=== PATIENT | female | born 1975 | race Caucasian/White ===

== ENCOUNTER 2023-03-29 08:15 | Outpatient (CLI) | payer OTHER, SELFPAY ==
--- NOTE | ~2023-03-29 | MM_ITS ---
EXAMINATION: MM screening meek BI w christopher HISTORY: Screening mammogram TECHNIQUE: Craniocaudal and mediolateral oblique 3-D tomosynthesis images were obtained and synthetic 2-D images were generated. CAD analysis was submitted and interpreted. COMPARISON: None, baseline BREAST PARENCHYMAL COMPOSITION: There are scattered areas of fibroglandular density. FINDINGS: RIGHT BREAST: There is asymmetry in the anterior and middle third of the outer breast on the cranioca udal view. LEFT BREAST: No suspicious mass, calcification, or architectural distortion are identified to suggest malignancy. IMPRESSION: 1. Right breast asymmetry. 2. Additional mammographic views and possible breast ultrasound are recommended to evaluate the right breast asymmetry and establish a baseline given that this is the first mammographic examination. BI-RADS Category 0: Incomplete: Needs additional imaging evaluation. Reviewed, dictated and finalized at location A. IMPRESSION: 1. Right breast asymmetry. 2. Additional mammographic views and possible breast ultrasound are recommended to evaluate the right breast asymmetry and establish a baseline given that thi s is the first mammographic examination. BI-RADS Category 0: Incomplete: Needs additional imaging evaluation.
== END 2023-03-29 08:16 | disposition home or self-care (01) ==
PROVIDERS: PCP Internal Medicine; Visit Provider Obstetrics & Gynecology
DX: Z12.31 Encounter for screening mammogram for malignant neoplasm of breast (principal); R92.8 Other abnormal and inconclusive findings on diagnostic imaging of breast
CPT/HCPCS: 77063; 77067

== ENCOUNTER 2023-05-05 11:43 | Outpatient (CLI) | payer OTHER, SELFPAY ==
--- NOTE | ~2023-05-05 | MMUS_ITS ---
EXAMINATION: MM diagnostic meek RT w christopher, US breast RT limited HISTORY: Asymmetry reported in the outer right breast on 03/29/2023 screening mammogram TECHNIQUE: Additional 3-D tomosynthesis images of the right breast were performed and synthetic 2-D i mages were generated. CAD analysis was submitted and interpreted. High resolution upper outer and low er-outer quadrant right breast ultrasound was performed. COMPARISON: 03/29/2020 3L screening mammogram FINDINGS: MAMMOGRAPHIC FINDINGS: No suspicious mass or architectural distortion, malignant calcification, skin thickening or retractio n is detected. ULTRASOUND: No suspicious mass or shadowing, cyst or other significant sonographic abnormality is detected in the upper outer or lower outer quadrants. IMPRESSION: 1. No mammographic evidence of malignancy 2. Routine annual mammographic screening is recommended BI-RADS Category 1: Negative Reviewed, dictated and finalized at location A. IMPRESSION: 1. No mammographic evidence of malignancy 2. Routine annual mammographic screening is recommended BI-RADS Category 1: Negative
== END 2023-05-05 11:44 | disposition home or self-care (01) ==
LOC: ANHIMG 11:46
PROVIDERS: PCP Physician Assistant Medical; Visit Provider Obstetrics & Gynecology
DX: R92.8 Other abnormal and inconclusive findings on diagnostic imaging of breast (principal)
CPT/HCPCS: 76642; 77061; 77065; G0279

== ENCOUNTER 2024-06-13 21:44 | Emergency (ER) | payer OTHER, SELFPAY ==
--- NOTE | ~2024-06-13 | CT_ITS ---
CT of the Abdomen and Pelvis: Indication: Right flank pain Technique: 2.5 mm axial scans were obtained through the abdomen and pelvis following intravenous adm inistration of 100 cc of Omnipaque 350. Dose reduction technique was used on this scan by utilizing a utomated exposure control and iterative reconstruction technique. The dose-length product (DLP) was 1 063.36 mGy-cm. Findings: Scans through the lung bases are unremarkable. The liver, spleen, gallbladder, adrenals and kidneys are within normal limits. There is mild inflamma tory change about the pancreatic head, compatible with mild acute pancreatitis. No pseudocyst or defi nite pancreatic necrosis seen. No evidence of aortic aneurysm. No lymphadenopathy. No bowel obstruction or bowel wall thickening. There is no evidence to suggest acute appendicitis. Images through the pelvis were performed. Urinary bladder unremarkable. Probable small uterine fibroi ds present. Small left ovarian cysts are present. No ascites. Impression: Mild acute pancreatitis. Small uterine fibroids and small left ovarian cyst. No evidence for urolithiasis. Reviewed, dictated and finalized at location . Impression: Mild acute pancreatitis. Small uterine fibroids and small left ovarian cyst. No evidence for urolithiasis.
[2024-06-13 21:51] VITALS: BP 170/84; PULSE 100; RESP 14; TEMP 36.6; O2SAT 100
[2024-06-14 00:42] VITALS: O2SAT 99
--- NOTE | 2024-06-14 01:07 | ED.GENADULT ---
HPI - General Adult General Chief complaint: Unspecified <Zain Medeiros PA-C - Last Filed: 06/14/24 03:36> Stated complaint: flank pain <Zain Medeiros PA-C - Last Filed: 06/14/24 03:36> Time Seen by Provider: 06/14/24 01:03 <Zain Medeiros PA-C - Last Filed: 06/14/24 03:36> Source: patient <Zain Medeiros PA-C - Last Filed: 06/14/24 03:36> Mode of arrival: ambulatory <Zain Medeiros PA-C - Last Filed: 06/14/24 03:36> Limitations: no limitations <Zain Medeiros PA-C - Last Filed: 06/14/24 03:36> History of Present Illness HPI narrative: this is a 48-year-old female who presents to the ED for chief complaint of right flank and right-sided abdominal pain. Patient states this problem has been coming and going over the past couple of days. Over the past 24 hours pain is certainly increased in severity and is not complaining of nausea. Denies vomiting, diarrhea, fevers, chills. Denies urinary symptoms, chest pain, shortness of breath, cough. Denies any recent injury. <Zain Medeiros PA-C - Last Filed: 06/14/24 03:36> Related Data Allergies/adverse reactions: Allergies Allergy/AdvReac Type Severity Reaction Status Date / Time No Known Allergies Allergy Unverified 11/26/22 13:33 <Zain Medeiros PA-C - Last Filed: 06/14/24 03:36> Review of Systems Review of Systems: All systems as dictated in HPI <Zain Medeiros PA-C - Last Filed: 06/14/24 03:36> [facility] Past Medical History Medical History: Medical History (Updated 06/14/24 @ 03:36 by Zain Medeiros PA-C) Family history of hemochromatosis HTN (hypertension) Impaired fasting blood sugar <Zain Medeiros PA-C - Last Filed: 06/14/24 03:36> Social History Social History: Social History (Updated 11/26/22 @ 14:28 by Hafsa Paul Smoking status: Never smoker Alcohol intake: current Substance use: never Substance use type: does not use Lack of Transportation: No Lack of Food: Never True Current Housing: I Have Housing Concerned About Future Housing: No Difficulty Paying Gas/Electric Bills: No Difficulty Paying for Meds: No Currently Unemployed: No Education: Associate Degree Difficulty w/ Childcare or Family Care: No Living arrangements: with family Occupation/Education: occupation Gender identity (if verbalized by the patient): Female Sexual Orientation (if Verbalized by the Patient): Straight or Heterosexual <Zain Medeiros PA-C - Last Filed: 06/14/24 03:36> Exam Narrative: GENERAL: Well-appearing, well-nourished, and in no acute distress. HEAD: Normocephalic, atraumatic. EYES: PERRLA and EOMI. ENT: Nares clear, no rhinorrhea or epistaxis. Mucous membranes moist. Oropharynx without tonsillar hypertrophy exudate or other lesions. NECK: Supple. No adenopathy or masses. CHEST: No respiratory distress. Clear to auscultation. No wheezes rales or rhonchi HEART: Regular rate and rhythm. No murmur heard. Normal peripheral pulses. ABDOMEN: Flank tenderness present. Soft, otherwise nontender, nondistended, normal active bowel sounds. MSK: Normal range of motion. No edema. SKIN: Warm, dry, no rash. NEURO: Alert and oriented x4. No focal deficits. PSYCH: Normal mood and affect. <Zain Medeiros PA-C - Last Filed: 06/14/24 03:36> Course SYSTEMS ENGINEERING MANAGER/PA Physician Supervision For this patient encounter, I reviewed the SYSTEMS ENGINEERING MANAGER or PA documentation, treatment plan, and medical decision making and I had [id number] time with this patient. I performed all aspects of the MDM as documented. <Wesley Carlson DO - Last Filed: 06/14/24 06:08> Vital Signs Vital signs: Vital Signs Temperature 97.9 F 06/13/24 21:51 Pulse Rate 100 06/13/24 21:51 Respiratory Rate 14 06/13/24 21:51 Blood Pressure 170/84 H 06/13/24 21:51 Pulse Oximetry 100 06/13/24 21:51 Oxygen Delivery Room Air 06/13/24 21:51 Temperature 97.9 F 06/13/24 21:51 Pulse R
[2024-06-14 01:36] LABS: Basophils Absolute Auto 0.1 K/mm3 (0.0-0.1); Basophils Percent Auto 0.4 % (0.2-1.2); Eosinophils Percent Auto 0.1 % (0-4.4); Hematocrit 38.5 % (37.0-47.0); Hemoglobin 13.4 g/dL (12.0-15.0); Immature Granulocyte Absolute 0.07 K/mm3 (0.00-0.031); Immature Granulocyte Percent A 0.4 % (0-0.5); Lymphocytes Absolute Auto 0.85 K/mm3 (0.9-3.2); Mean Corpuscular HGB Conc 34.8 g/dl (32-36); Mean Corpuscular Hemoglobin 30.2 pg (26-34); Mean Corpuscular Volume 86.9 fl (80-100); Mean Platelet Volume 10.2 fl (7.4-10.4); Monocytes Absolute Auto 0.8 K/mm3 (0.1-0.6); Monocytes Percent Auto 4.5 % (2.6-8.5); Neutrophils Absolute Auto 15.3 K/mm3 (1.3-6.7); Neutrophils Percent Auto 89.6 % (45.5-73.1); Platelet Count Result 219 k/mm3 (150-375); Red Blood Count 4.43 M/mm3 (4.2-5.4); Red Cell Distribution Width 13.1 % (11.5-14.5)
[2024-06-14 01:43] LABS: Add Urine Microscopic? YES; Appearance Urine Clear (Clear); Bacteria Urine Rare /hpf; Bilirubin Urine Negative (Negative); Blood Urine Trace (Negative); Color Urine Yellow (Yellow); Glucose Urine UA Negative (Negative); Ketones Urine 2+ mg/dL (Negative); Leukocyte Esterase Ur Negative LEU/UL (Negative); Nitrate Urine Negative (Negative); Non Pathogenic Casts 0-2; Protein Urine Negative (Negative); Specific Grav Ur 1.015 (1.001-1.035); Squamous Epithelial Cell Urine Occasional /hpf (Few); Urobilinogen Urine 0.2 mg/dL (<2.0); WBC Urine 0-5 /hpf (0-3)
[2024-06-14] MEDS: MORPHINE SULFATE (*CRX) 4 MG/ML INJ IV PUSH ×2 (01:46→11:24)
[2024-06-14] MEDS: ONDANSETRON INJ 4 MG/2 ML VIAL IV PUSH (01:47)
[2024-06-14 01:56] LABS: Alanine Aminotransferase 18 U/L (6-35); Albumin Level 4.8 g/dL (3.5-5.1); Alkaline Phosphatase 82 U/L (38-126); Anion Gap 12 mmol/L (4-12); Aspartate Amino Transferase 18 U/L (14-36); Blood Urea Nitrogen 7 mg/dL (7-17); Calcium 9.6 mg/dL (8.4-10.2); Carbon Dioxide 28 mmol/L (22-30); Chloride 92 mmol/L (98-107); Estimated CRCL calculation 89 ml/min; Estimated Glomerular Filt Rate > 60; Glucose 159 mg/dL (65-110); Lipase 307 U/L (23-300); Potassium 3.9 mmol/L (3.4-5.0); Sodium 132 mmol/L (137-145)
[2024-06-14 02:16] LABS: BEDSIDEPREGUCG Negative
[2024-06-14] MEDS: SODIUM CHLORIDE 0.9% IV 1,000 ML 999 ML IV CONT ×2 (03:33)
[2024-06-14] MEDS: HYDROmorphone HCL INJ (*CRX) 1 MG/ML SYR 0.5 MG IV PUSH ×3 (03:34→09:21)
[2024-06-14 03:48] VITALS: BP 154/71; PULSE 91; RESP 18; O2SAT 99
[2024-06-14 06:23] VITALS: BP 141/77; PULSE 84; RESP 18; O2SAT 100
[2024-06-14 07:24] VITALS: BP 157/86; PULSE 98; RESP 18; O2SAT 99
[2024-06-14 07:25] VITALS: BP 157/86; PULSE 98; RESP 19; O2SAT 99
[2024-06-14 09:23] VITALS: BP 160/89; PULSE 98; RESP 17; O2SAT 97
--- NOTE | 2024-06-14 09:28 | PC.NURSE ---
Transfer to [facility] ETA 11:30 0920 [facility] declined 0924 [facility] ETA 11:00
[2024-06-14] MEDS: SODIUM CHLORIDE 0.9% IV 1,000 ML 200 ML IV CONT (10:06)
--- NOTE | 2024-06-14 10:21 | PC.NURSE ---
Patient frustrated with wait time for EMS arrival for transfer. Discussed with patient and regarding awaiting EMS and potential for delays. Pt informed of risk if leaving AMA and driving self over to receiving facility and potential delays in care. Dr. Wood aware and spoke with patient. She is willing to wait for EMS and a second EMS service notified for transport and accepted transfer. Approximate time will be 1200pm. Pt comfortable at this time, IV fluids started for hydration and pt aware of remaining NPO.
== END 2024-06-14 12:11 | disposition short-term general hospital (02) ==
PROVIDERS: Physician Assistant; Emergency Provider Emergency Medicine; PCP Physician Assistant Medical
DX: K85.90 Acute pancreatitis without necrosis or infection, unspecified (principal); I10 Essential (primary) hypertension; D25.9 Leiomyoma of uterus, unspecified; N83.202 Unspecified ovarian cyst, left side; Z79.899 Other long term (current) drug therapy
CPT/HCPCS: 36415; 74177; 80053; 81001; 81025; 83690; 85025; 96361; 96374; 96375; 96376; 99285; J1170; J2270; J2405; J7030; Q9967

== ENCOUNTER 2024-11-21 14:56 | Outpatient (CLI) | payer OTHER, SELFPAY ==
--- NOTE | ~2024-11-21 | MM_ITS ---
EXAMINATION: MM screening meek BI w christopher HISTORY: Screening TECHNIQUE: Craniocaudal and mediolateral oblique 3-D tomosynthesis images were obtained and synthetic 2-D images were generated. CAD analysis was submitted and interpreted. COMPARISON: Comparison to multiple prior studies sequentially, with oldest reviewed study dated 03/29.. BREAST PARENCHYMAL COMPOSITION: Not dense: There are scattered areas of fibroglandular density. FINDINGS: There is no evidence of suspicious mass, calcification, or architectural distortion to sugg est malignancy in either breast. There has been no suspicious interval change. IMPRESSION: 1. No mammographic evidence of malignancy. 2. Recommend routine screening mammography in one year. BI-RADS Category 1: Negative Reviewed, dictated and finalized at location B. E SETTER
== END 2024-11-21 14:57 | disposition home or self-care (01) ==
LOC: ANHIMG 14:57
PROVIDERS: PCP Physician Assistant Medical; Visit Provider Obstetrics & Gynecology
DX: Z12.31 Encounter for screening mammogram for malignant neoplasm of breast (principal)
CPT/HCPCS: 77063; 77067